=== PATIENT | male | born 1940 | race Caucasian/White ===

== ENCOUNTER 2021-01-24 01:55 | Outpatient (CLI) | payer OTHER, SELFPAY ==
--- NOTE | 2021-01-24 11:00 | DI.NM_ITS ---
APPROVED REPORT Exam: Pharmacologic Patient Location: Out-Patient Room/Bed: Stress Nurse: Lakeisha Howell RN Ordering Provider:CLAUDIA FALLON, Contact Number: FAX # [phone] BMI: 39.05 Baseline Rhythm: Atrial Fibrillation Indications: Preop, lung mass, peripheral vascular disease Medical History Medical History: DM II, Aortic aneurysm (4.8), PVD, obesity Cardiac Medications: Glipizide, januvia, esmoprazole Allergies: Penicillin Cardiac Risk Factors: Obesity, PVD, smoker (former) Previous Cardiac Procedures: None Pretest Chest Pain Characteristics: None Exercise History: Sedentary Physical Disabilities: None Lung Sounds: Clear to auscultation Heart Sounds: Irregular Stress Test Details Test: Exercise stress converted to pharmacologic stress due to failure to obtain a diagnostic stress test. Reason for pharmacologic stress test: changed from exercise stress test due to inability to reach t arget heart rate. Nuclear Acquisition: Rest Tc-99m/Stress Tc-99m 1 day Rest Isotope: Tc-99m Sestamibi. Dose: 11.0 Date: 01/24/2021 Injection Time: 1115 Stress Isotope: Tc-99m Sestamibi. Dose: 36.0 Date: 01/24/2021 Injection Time: 1325 HR Resting HR Supine: 51 bpm Max Heart Rate (APMHR): 140.487492 bpm Resting HR Standin bpm Target HR (85% APMHR): 119.579103 bpm Max HR Achieved: 110 bpm % of APMHR: 78.57 Recovery HR: 69 bpm HR response to stress: Normal HR response to stress Comment: THR not achieved BP Resting BP Supine: 132/66 mmHg Resting BP Standin/62 mmHg Max BP: 154/68 mmHg Recovery BP: 134/58 mmHg BP response to stress: Normal blood pressure response to stress. ECG Resting ECG: Atrial Fibrillation Ectopy: None Stress ECG: Atrial Fibrillation ST Change: No significant ST segment changes noted Arrhythmia: Occasional multifocal PVCs Comment: More frequent PVCs after Lexiscan injection Recovery ECG: Atrial Fibrillation Recovery ST Change: No significant ST segment changes noted Recovery Arrhythmia: Occasional multifocal PVCs Clinical Reason for Termination: Fatigue Stress Symptoms: General Fatigue, Leg Fatigue, Dyspnea Exercise capacity: 6.37 METs Rate Pressure Product: [id number] Stress ECG Conclusion 1. This was an exercise stress test that was converted to pharmacological after patient failed to la ch target heart rate. 2. ECG portion of this exam was nondiagnostic. Stress Test Summary STAGE Time (mins) Speed (mph) Grade (%) HR BP SYMPTOMS METS Supine 51 132/66 Standing 60 132/62 SpO2 94% 1 3 1.7 10 99 140/78 SpO2 94% 4.6 2 6 2.5 12 111 154/60 SpO2 94%, moderate SOB, 7/10 L leg pain 7 1 min post Lexiscan injection 88 154/68 SpO2 95%, symptoms improving 3 min post Lexiscan injection 69 134/58 SpO2 96%, symptoms resolved Pt was unable to reach THR during exercise. After brief period of rest, test transitioned to walking Lexiscan at 1.2 mph and 0% grade. MPI Conclusion The ejection fraction was 49% with stress. There were no wall motion abnormalities. There is a small partially reversible perfusion defect at the apex. If clinical suspicion remains high, recommend further ischemic evaluation. Radiologist Interpretation Radiologist Interpretation by: Yariel Reynolds MD Interpretation Date/Time: 01/24/2021 16:12:16
[2021-01-24] MEDS: Regadenoson 0.4 MG/5 ML SYR IVP (13:36)
== END 2021-01-24 02:15 ==
PROVIDERS: PCP Family Medicine Adult Medicine; Visit Provider Thoracic Surgery (Cardiothoracic Vascular Surgery)
DX: R91.8 Other nonspecific abnormal finding of lung field (principal); E11.51 Type 2 diabetes mellitus with diabetic peripheral angiopathy without gangrene; E66.9 Obesity, unspecified; Z87.891 Personal history of nicotine dependence; I71.4 Abdominal aortic aneurysm, without rupture
CPT/HCPCS: 78452; 93016; 93018; 93017; J2785

== ENCOUNTER 2021-01-31 02:38 | Outpatient (CLI) | payer OTHER, SELFPAY ==
--- NOTE | 2021-01-31 | DI.CT_ITS ---
Exam(s) CT CHEST W EXAM: CT CHEST W CLINICAL HISTORY: PREOP,HIGH RISK SURGERY,LUNG MASS,R91.8,[place] CA, EVALUATE FOR SURGICAL TECHNIQUE: CT examination of the chest was performed with intravenous infusion of 100 cc of Omnipaqu e 350. COMPARISON: No exams were available for comparison FINDINGS: There is a lobulated right lower mass which is pleural based and seen posteriorly measuring up to abo ut 5 x 3 cm in diameter on transaxial imaging period there are bibasilar linear changes of presumed p ulmonary scarring. No other mass identified in the lungs. Mild COPD noted. There is no evidence of pleural effusion. There is no evidence of major pulmonary embolic disease although the peripheral vessels are not well opacified.. There is unremarkable appearance of the thoracic aorta and major branches with no eviden ce of aneurysm or dissection. There is no mediastinal or hilar adenopathy. Tracheobronchial tree appears intact. No axillary or supraclavicular adenopathy. There is probable hepatic steatosis. No focal lesion of visualized portions of the liver, spleen, or pancreas. Adrenals appear normal bilaterally although left adrenal is incompletely visualized. No abnormality seen involving the bony thorax. IMPRESSION: Lobulated right lower lobe pulmonary mass as described above. No additional significant findings. RADIATION DOSE DELIVERED: 675.71mGy.cm Total DLP 675.71mGy.cm Total DLP CTDIvol
--- NOTE | 2021-01-31 08:30 | DI.US_ITS ---
APPROVED REPORT EXAM: Comprehensive 2D, Doppler, and color-flow Echocardiogram Patient Location: Out-Patient Hearing Care Professional: Maribell Dasilva RDCS (AE) Indications: Pre op, Lung mass, Peripheral vascular disease Other Information Study Quality: Adequate Conclusion Left Ventricle : The left ventricle is normal size. The left ventricular systolic function is normal. The left ventricular ejection fraction is within the normal range. There is normal left ventricular wall thickness. There is normal LV segmental wall motion. The left ventricular diastolic function is normal. LVEF is 60%. Right Ventricle : The right ventricle is normal size. The right ventricular systolic function is norm al. The RVSP is 31.4 mmHg. Atria : The left atrium size is normal. The right atrium size is normal. Mitral Valve : The mitral valve is normal in structure. Mild mitral regurgitation. No evidence of mamie ral valve stenosis. Great Vessels : The aortic root is normal in size. The ascending aorta is moderately dilated. Aortic arch is normal in caliber. IVC is normal in size and collapses >50% with inspiration. Please see remainder of study for further details. Wall motion Left Ventricle The left ventricle is normal size. The left ventricular systolic function is normal. The left ventric ular ejection fraction is within the normal range. There is normal left ventricular wall thickness. T here is normal LV segmental wall motion. The left ventricular diastolic function is normal. There is no ventricular septal defect visualized. LVEF is 60%. Right Ventricle The right ventricle is normal size. The right ventricular systolic function is normal. The RVSP is 31 .4 mmHg. Atria The left atrium size is normal. The right atrium size is normal. The interatrial septum is intact wit h no evidence for an atrial septal defect. Aortic Valve The aortic valve is normal in structure. Aortic valve is trileaflet. There is no aortic valvular sten osis. No aortic regurgitation is present. Mitral Valve The mitral valve is normal in structure. No evidence of mitral valve stenosis. Mild mitral regurgitat ion. Tricuspid Valve The tricuspid valve is normal in structure. There is no tricuspid valve stenosis. Trace tricuspid reg urgitation. Pulmonic Valve The pulmonary valve is normal in structure. There is no pulmonic valvular stenosis. Trace pulmonic re gurgitation. Great Vessels The aortic root is normal in size. The ascending aorta is moderately dilated. Aortic arch is normal i n caliber. IVC is normal in size and collapses >50% with inspiration. Pericardium There is no pericardial effusion. 2D Dimensions IVSD d PLAX 1.16 cm M: 0.6-1.2 LV Vol A2C d MOD 108.1 mL LVPW d PLAX 1.13 cm M: 0.6 - 1.2 LV Vol A4C d MOD 92.9 mL LVID d PLAX 5.38 cm M: 4.2 - 5.8 LA vol/ BSA A2C s A-L 27.1 mL/m2 LVDs 3.55 cm M: 2.5 - 4.0 LA vol/ BSA A4C s A-L 21.3 mL/m2 Ao Root d 3.54 cm M: 3.1 - 3.7 LA Vol/ BSA Biplane s A-L 25.2 mL/m2 RA Area A4C 16.78 cm2 LA Area A4C s MOD 17.28 cm2 RA Vol/ BSA A4C s A-L 23.9 mL/m2 LA Area A2C s MOD 18.53 cm2 Ao Asc Diam d 4.00 cm M: 2.6 - 3.4 LV EF A4C MOD 61.9 % LV EF Teichholz 62.1 % LV EF A2C MOD 60.8 % LVEF (Fuller's) 60.38 % M: 52 - 72 LV EF Biplane MOD 60.4 % LV Volume 74.91 mL M: 62 - 150 SV 61.81 mL LV Volume Index 34.84 mL/m2 M: 34 - 74 SV Index 28.65 mL/m2 LV Vol Biplane MOD 102.4 mL FS 33.75 % M-Mode TAPSE 2.70 cm (M/F) >1.7 LV Diastology MV E' medial 0.064 (>0.07 m/s) E/A Ratio 0.9 LV E/e MED 9.85 (<14) MV E Vmax 0.64 (0.4-1.3 m/s) MV E' lateral 0.066 (>0.1 m/s) MV A Vmax 0.75 (0.4-1.3 m/s) LV E/e LAT 9.70 (<14) MV E/A Ratio 0.81 MV E/E' medial 9.90 MV E/E' lateral 9.73 Aortic Valve LVOT Area 3.90 cm2 AoV Area Vmax 2.36 cm2 LVOT Vmax 0.96 m/s AoV Area/ BSA (Vmax) 1.09 cm2/m2 LVOT Mean Barney. 0.60 m/s NICOLETTE Mean Barney. 2.08 cm2 LVOT Peak Grad 3.7 mmHg NICOLETTE Mean Barney. Index 0.97 cm2/m2 LVOT Mean Grad 1.8 mmHg LVOT VTI 0.230 m LVOT Diam s 2.20 cm AoV Vmax 1.58 m/s Velocity Ratio 0.60 AoV Mean Barney. 1.13 m/s AoV Peak Grad 10.0 mmHg LVOT SV 89.55 mL AoV Mean Grad 5.7 mmHg AoV VTI 0.367 m AoV Area VTI 2.44 cm2 AoV Area/ BSA (VTI) 1.13 cm/m2 Mitral Valve MV DT 262 (160-240 msec) MR Vmax 2.67 m/s MV PHT 76 msec MR VTI 0.886 m MV Area PHT 2.89 cm2 MR Peak Grad 28.6 mmHg MV VTI 0.315 m MR Mean Grad 23.5 mmHg MV VTI Annulus 0.310 m MV Area VTI 2.79 (4.0-6.0 cm2) Pulmonary Valve PV Vmax 0.73 (0.5-1.5 m/s) RVOT Peak Gr. 1.31 mmHg PV Peak Grad 2.1 mmHg RVOT Mean Gr. 0.75 mmHg PV Mean Grad 1.2 mmHg RVOT VTI 0.125 m PV VTI 0.163 m RVOT Vmax 0.57 m/s Tricuspid Valve TR Peak Grad 28.3 mmHg TR Vmax 2.66 m/s RA Pressure 3.00 mmHg RVSP (TR) 31.4 mmHg
[2021-01-31 08:35] LABS: Abs Immature Grans 0.02 10^3/uL (0.0-0.06); Absolute Basophil Count 0.05 10^3/uL (0.0-0.2); Absolute Eosinophil Count 0.29 10^3/uL (0.0-0.7); Absolute Lymphocyte Count 1.43 10^3/uL (1.2-3.4); Absolute Monocyte Count 0.58 10^3/uL (0.1-0.8); Absolute Neutrophil Count 5.06 10^3/uL (1.2-6.7); Basophils % 0.7; Eosinophils % 3.9; HCT 47.5 % (40.0-50.0); HGB 15.6 g/dL (13.5-17.5); Immature Grans % 0.3; Lymphocytes % 19.2; MCH 29.9 pg (27.0-33.0); MCHC 32.8 % (32.0-36.0); MPV 9.6 fL (8.0-11.0); Monocytes % 7.8; Neutrophils % 68.1; Nucleated RBC 0 %; Platelet Count 196 10^3/uL (130-400); RBC 5.22 10^6/uL (4.36-5.78); RDW 13.8 % (11.8-14.1); RDW-SD 46.4 fL; WBC 7.43 10^3/uL (4.4-10.8)
[2021-01-31 08:49] LABS: ALT 42 U/L (16-63); AST 28 U/L (15-37); Albumin 3.7 g/dL (3.4-5.0); Alkaline Phosphatase 45 U/L (46-116); Anion Gap 6.1 mmol/L (3-11); BUN 14 mg/dL (7-18); Bilirubin, Total 0.8 mg/dL (0.2-1.0); CO2 29.9 mmol/L (21.0-32.0); CREATININE 0.9 mg/dL (0.70-1.30); Calcium 9.2 mg/dL (8.5-10.1); Chloride 106 mmol/L (98-107); Glucose 171 mg/dL (74-106); Potassium 4.2 mmol/L (3.5-5.1); Sodium 142 mmol/L (136-145); Total Protein 7.3 g/dL (6.4-8.2)
[2021-01-31] MEDS: Normal Saline - Diluent 50 ML VIAL IV (09:47)
[2021-01-31] MEDS: Omnipaque 350 MG/ML 100 ML BTL IJ (09:48)
[2021-01-31] MEDS: Normal Saline Flush 10 ML SYR IVP (09:49)
== END 2021-01-31 02:58 ==
PROVIDERS: PCP Family Medicine Adult Medicine; Visit Provider Thoracic Surgery (Cardiothoracic Vascular Surgery)
DX: I73.9 Peripheral vascular disease, unspecified (principal); R91.8 Other nonspecific abnormal finding of lung field; Z01.810 Encounter for preprocedural cardiovascular examination; I34.1 Nonrheumatic mitral (valve) prolapse; I77.810 Thoracic aortic ectasia
CPT/HCPCS: 80053; 93306; 71260; 85025; J3490